=== PATIENT | female | born 1965 | race Caucasian/White ===

== ENCOUNTER → 2017-02-11 | Outpatient (CLI) | payer BC ==
[~2017-02-11] MED LIST: CYCLOBENZAPRINE10 M1 PO; CYMBALTA30 MG PO; FLOMAX 0.4MG C0.4 MG PO; GABAPENTIN300 M1 PO; HYDROCO/APAP TAB 5-3 PO; HYDROCODONE-APA1 TA2 PO; JANUMET XR 10001 TE1 PO; JANUVIA50 MG PO; KEFLEX 500MG.500 MG PO; LISINOPRIL10 MG PO; METFORMIN1000 MG PO; OXYBUTYNIN CHLO10 MG PO; PERCOCET1 TA1 PO; ZOFRAN 8MG TABLE8 MG PO; ZOFRAN ODT4 MG PO
[2017-02-11 17:05] LABS: HEMOGLOBIN 9.6 g/dL (12.2-16.2); LYMPH # 1.4 K/mm3 (0.7-4.5)
[2017-02-11 17:44] LABS: BUN 9 mg/dL (7-18)
[2017-02-11 18:03] LABS: GFR (ESTIMATED) 76 ML/MIN (59-)
[2017-02-13 07:37] LABS: Vitamin D, 25-Hydroxy 37.1 ng/mL (30.0-100.0)
== END ==
LOC: LAB 15:11
PROVIDERS: Nurse Practitioner Family
DX: E53.8 Deficiency of other specified B group vitamins (principal); E11.8 Type 2 diabetes mellitus with unspecified complications; I10 Essential (primary) hypertension; E55.9 Vitamin D deficiency, unspecified; G25.81 Restless legs syndrome

== ENCOUNTER → 2017-02-19 | Outpatient (CLI) | payer BC ==
--- NOTE | 2017-02-19 12:42 | RADIOLOGY REPORT PS360 ---
US LIMITED CLINICAL INDICATION: Abdominal wall pain LIPOMA ORDERING PHYSICIAN: Selina Curtis APRN PATIENT AGE: 51 years COMPARISON: None FINDINGS: General survey is performed of the abdominal wall show a nonspecific fatty tissue. Cannot determine if any of these areas are circumscribed due to the abundance of this tissue and no perceptible borders. IMPRESSION: No discrete sonographic abnormality. Study is limited secondary to patient's body habitus. If pain persists, would recommend CT without and with contrast
== END ==
LOC: RAD 08:58
DX: D17.9 Benign lipomatous neoplasm, unspecified (principal)